=== PATIENT | female | born 1975 | race Caucasian/White ===

== ENCOUNTER 2022-01-14 16:16 | Emergency (ER) | payer OTHER ==
[2022-01-14] MEDS ORDERED: dexAMETHasone 10 MG/ML VIAL ONE (17:51)
[2022-01-14 19:57] LABS: Absolute Lymphocytes (CBC) 1.6 K/uL (0.7-4.9); Hematocrit 42.2 % (36.0-45.0); Lymphocytes % 21.7 % (15.3-44.8); MCV 93.9 fL (80-100); MPV 7.3 fL (7.6-11.3)
[2022-01-14 19:59] LABS: Potassium 4.1 mmol/L (3.5-5.1)
--- NOTE | 2022-01-14 20:53 | RAD REPORT ---
EXAM DESCRIPTION: CT - Soft Tissue Neck W/Contr - 01/14/2022 8:33 pm CLINICAL HISTORY: Neck mass COMPARISON: None. TECHNIQUE: Computed axial tomography of the neck was obtained. 50 cc Isovue 300 was administered in travenously. Coronal and sagittal reconstruction was performed. All CT scans are performed using dose optimization technique as appropriate and may include automated exposure control or mA/KV adjustment according to patient size. FINDINGS: The patient has a palpable mass to the left of midline at the level of the larynx. This area was marked. There is a 2 x 1 centimeter solid enhancing structure which is partially within the anterior musculature at the level of the larynx and extends into the anterior subcutaneous fat. Thyroidectomy The remainder of the pharynx, tongue base, larynx and subglottic trachea appear unremarkable The parotid and right submandibular gland unremarkable. Left submandibular gland is absent. No lymphadenopathy is seen No fluid within the sinuses/mastoids. Postsurgical changes involve the cervical spine IMPRESSION: 2 x 1 centimeter palpable mass within the anterior neck to the left of midline at the le bhavik of the larynx. This may represent ectopic thyroid tissue. Neoplasm is a another consideration. It is recommended that the patient have an ultrasound for further evaluation
--- NOTE | 2022-01-14 21:22 | ER ---
Nurse's Notes [facility] Name: Yi Balderas Age: 46 yrs Sex: Female : 1975 Arrival Date: 01/14/2022 Time: 16:23 Bed 9 Private MD: Diagnosis: Localized swelling, mass and lump, neck Presentation: 01/14 17:22 Chief complaint: Patient states: noticed neck swelling about a week ago and stated on vg1 Friday01/12/22 noticed a lump on neck and is "having some difficulty breathing" Also stated is currently taking Amoxicillin due to sinus infection. Coronavirus screen: Vaccine status: Patient reports receiving the 2nd dose of the covid vaccine. Client denies travel out of the [place] in the last 14 days. Ebola Screen: Patient denies exposure to infectious person. Patient denies travel to an Ebola-affected area in the 21 days before illness onset. Initial Sepsis Screen: Does the patient meet any 2 criteria? No. Patient's initial sepsis screen is negative. Does the patient have a suspected source of infection? No. Patient's initial sepsis screen is negative. Risk Assessment: Do you want to hurt yourself or someone else? Patient reports no desire to harm self or others. Onset of symptoms was January 07, 2022. 17:22 Method Of Arrival: Ambulatory vg1 17:22 Acuity: CADEN 3 vg1 Triage Assessment: 17:24 General: Appears uncomfortable, Behavior is cooperative. Pain: Complains of pain in vg1 neck Pain currently is 0 out of 10 on a pain scale. at worst was 7 out of 10 on a pain scale. Pain began 2-3 days ago. 17:24 EENT: Throat is reddened. Respiratory: Airway is patent Respiratory effort is even, vg1 unlabored. 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 - Social history:: Smoking status: Patient reports the use of cigarette tobacco products, smokes one-half pack cigarettes per day. Screenin:43 Abuse screen: Denies threats or abuse. Denies injuries from another. Nutritional estrada screening: No deficits noted. Tuberculosis screening: No symptoms or risk factors identified. Fall Risk None identified. Assessment: 17:42 Pain: Complains of pain in throat pain. Respiratory: Airway is patent Breath sounds are estrada clear bilaterally. EENT: Throat is reddened Reports pain in throat pain when swallowing Pain is 7 out of 10 on a pain scale. 17:51 Respiratory: Airway is patent. estrada 18:26 Reassessment: Patient appears in no apparent distress at this time. Patient and/or ld1 family updated on plan of care and expected duration. Pain level reassessed. Patient is alert, oriented x 3, equal unlabored respirations, skin warm/dry/pink. Vital Signs: 17:22 BP 134 / 98; Pulse 88; Resp 16; Temp 97.9; Pulse Ox 99% on R/A; Weight 92.99 kg; Height vg1 5 ft. 5 in. (165.10 cm); Pain 7/10; 18:26 BP 131 / 95; Pulse 82; Resp 18; Pulse Ox 99% on R/A; ld1 19:43 BP 136 / 89; Pulse 86; Resp 18; Pulse Ox 99% on R/A; ld1 20:58 BP 139 / 86; Pulse 81; Resp 18; Pulse Ox 99% on R/A; ld1 17:22 Body Mass Index 34.11 (92.99 kg, 165.10 cm) vg1 ED Course: 16:23 Patient arrived in ED. mr 16:24 Dragan Madrigal is PHCP. jl9 16:24 Chad Figueroa DO is Attending Physician. jl9 17:24 Triage completed. vg1 17:28 Arm band placed on. vg1 17:42 Genoveva Espana RN is Primary Nurse. estrada 17:43 Patient has correct armband on for positive identification. Bed in low position. estrada 17:43 No provider procedures requiring assistance completed. estrada 19:32 Primary Nurse role handed off by Genoveva Espana, KARISHMA mw2 19:33 Ilene Ojeda, KARISHMA is Primary Nurse. ld1 20:34 CT Soft Tissue Neck W/contr In Process Unspecified. EDIA 21:21 Karine Colin MD is Referral Physician. jl9 21:31 IV discontinued, intact, bleeding controlled, No redness/swelling at site. ld1 Administered Medications: 17:45 Drug: Dexamethasone 10 mg Route: IM; Site: left gluteus; estrada 17:51 Follow up: Response: No adverse reaction estrada Medication: 17:43 VIS not applicable for this client. estrada Outcome: 21:21 Discharge ordered by . jl9 21:31 Discharged to home ambulatory. ld1 21:31 Condition: stable 21:31 Discharge instructions given to patient, Instructed on discharge instructions, follow up and referral plans. medication usage, Demonstrated understanding of instructions, follow-up care, medications, Prescriptions given X 1. 21:31 Patient left the ED. ld1 Signatures: Dispatcher [employer] EDIA Francine Greenwood, Julio mw2 Merle Matias, RN RN vg1 Ilene Ojeda RN RN ld1 Genoveva Espana RN RN Dragan Dhillon jl9 Corrections: (The following items were deleted from the chart) 17:27 17:22 Chief complaint: Patient states: noticed neck swelling about a week ago and vg1 stated on Friday01/12/22 noticed a lump on neck and is "having some difficulty breathing" vg1 17:27 17:24 Pain: Complains of pain in neck Pain currently is 0 out of 10 on a pain scale. [id number]
--- NOTE | 2022-01-14 21:22 | EDPHYS ---
Physician Documentation [facility] Name: Yi Balderas Age: 46 yrs Sex: Female : 1975 Arrival Date: 01/14/2022 Time: 16:23 Bed 9 Private MD: ED Physician Chad Figueroa HPI: 01/14 17:44 This 46 yrs old Female presents to ER via Ambulatory with complaints of Sore jl9 Throat, Throat Swelling. 17:44 The patient presents with. Onset: The symptoms/episode began/occurred 1 week(s) ago. jl9 Severity of symptoms: in the emergency department the symptoms. Modifying factors: the symptoms are aggravated by fluids, foods, swallowing. Patient on antibiotics for a sinus infection. . 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 - Social history:: Smoking status: Patient reports the use of cigarette tobacco products, smokes one-half pack cigarettes per day. ROS: 17:45 Constitutional: Negative for fever, chills, and weight loss, Eyes: Negative for injury, jl9 pain, redness, and discharge. 17:45 Cardiovascular: Negative for chest pain, palpitations, and edema, Respiratory: Negative for shortness of breath, cough, wheezing, and pleuritic chest pain, Abdomen/GI: Negative for abdominal pain, nausea, vomiting, diarrhea, and constipation, Back: Negative for injury and pain, : Negative for injury, bleeding, discharge, and swelling, MS/Extremity: Negative for injury and deformity, Skin: Negative for injury, rash, and discoloration, Neuro: Negative for headache, weakness, numbness, tingling, and seizure, Psych: Negative for depression, anxiety, suicide ideation, homicidal ideation, and hallucinations, Allergy/Immunology: Negative for hives, rash, and allergies, Endocrine: Negative for neck swelling, polydipsia, polyuria, polyphagia, and marked weight changes, Hematologic/Lymphatic: Negative for swollen nodes, abnormal bleeding, and unusual bruising. 17:45 ENT: Positive for difficulty swallowing. 17:45 Neck: Positive for swelling, swollen nodes. Exam: 21:17 Constitutional: This is a well developed, well nourished patient who is awake, alert, jl9 and in no acute distress. Head/Face: Normocephalic, atraumatic. Eyes: Pupils equal round and reactive to light, extra-ocular motions intact. Lids and lashes normal. Conjunctiva and sclera are non-icteric and not injected. Cornea within normal limits. Periorbital areas with no swelling, redness, or edema. 21:17 ENT: Mucous membranes moist. 21:17 Chest/axilla: Normal chest wall appearance and motion. Nontender with no deformity. No lesions are appreciated. Cardiovascular: Regular rate and rhythm with a normal S1 and S2. No gallops, murmurs, or rubs. Normal PMI, no JVD. No pulse deficits. Respiratory: Lungs have equal breath sounds bilaterally, clear to auscultation and percussion. No rales, rhonchi or wheezes noted. No increased work of breathing, no retractions or nasal flaring. Abdomen/GI: Soft, non-tender, with normal bowel sounds. No distension or tympany. No guarding or rebound. No evidence of tenderness throughout. Back: No spinal tenderness. No costovertebral tenderness. Full range of motion. Skin: Warm, dry with normal turgor. Normal color with no rashes, no lesions, and no evidence of cellulitis. MS/ Extremity: Pulses equal, no cyanosis. Neurovascular intact. Full, normal range of motion. Neuro: Awake and alert, GCS 15, oriented to person, place, time, and situation. Cranial nerves II-XII grossly intact. Motor strength 5/5 in all extremities. Sensory grossly intact. Cerebellar exam normal. Normal gait. Psych: Awake, alert, with orientation to person, place and time. Behavior, mood, and affect are within normal limits. 21:17 Neck: External neck: mass, swelling. Vital Signs: 17:22 BP 134 / 98; Pulse 88; Resp 16; Temp 97.9; Pulse Ox 99% on R/A; Weight 92.99 kg; Height vg1 5 ft. 5 in. (165.10 cm); Pain 7/10; 18:26 BP 131 / 95; Pulse 82; Resp 18; Pulse Ox 99% on R/A; ld1 19:43 BP 136 / 89; Pulse 86; Resp 18; Pulse Ox 99% on R/A; ld1 20:58 BP 139 / 86; Pulse 81; Resp 18; Pulse Ox 99% on R/A; ld1 17:22 Body Mass Index 34.11 (92.99 kg, 165.10 cm) vg1 MDM: 16:57 Patient medically screened. jl9 17:46 Data reviewed: vital signs, nurses notes. 01/14 18:51 Order name: CBC with Diff; Complete Time: 20:15 01/14 18:51 Order name: BMP; Complete Time: 20:15 01/14 17:35 Order name: CT Soft Tissue Neck W/contr; Complete Time: 21:03 jl9 Administered Medications: 17:45 Drug: Dexamethasone 10 mg Route: IM; Site: left gluteus; etsrada 17:51 Follow up: Response: No adverse reaction estrada Disposition: 22:23 Co-signature as Attending Physician, Chad EAGLE was immediately available on-site ms3 in the Emergency Department for consultation in the care of the patient. . Disposition Summary: 01/14/22 21:21 Discharge Ordered Location: Home jl9 Condition: Stable jl9 Diagnosis - Localized swelling, mass and lump, neck jl9 Followup: jl9 - With: Karine Colin MD - When: Tomorrow - Reason: Recheck today's complaints, Continuance of care Discharge Instructions: - Discharge Summary Sheet jl9 - Thyroid Nodule jl9 Forms: - Medication Reconciliation Form jl9 - Thank You Letter jl9 - Antibiotic Education jl9 - Prescription Opioid Use jl9 Prescriptions: - Medrol (Santi) 4 mg Oral Tablets, Dose Pack - take 1 tablet by ORAL route as directed - follow package instructions; 1 jl9 packet; Refills: 0, Product Selection Permitted Signatures: Dispatcher [employer] Merle Goncalves, RN RN vg1 Chad Figueroa DO DO ms3 Au-StagerGenoveva RN RN ha Linares, John jl9
[2022-01-14 22:24] VITALS: TEMP 97.9; O2SAT 99
[2022-01-14 22:28] VITALS: BP 139/86
== END 2022-01-14 21:31 | disposition home or self-care (01) ==
LOC: ER 16:16
DX: R22.1 Localized swelling, mass and lump, neck (principal); E03.9 Hypothyroidism, unspecified; F17.210 Nicotine dependence, cigarettes, uncomplicated; Z88.3 Allergy status to other anti-infective agents; Z88.5 Allergy status to narcotic agent
CPT/HCPCS: 85025; 80048; 36415; 70491; 96372; 99283; Q9967; J1100